=== PATIENT | female | born 1955 | race Caucasian/White ===

== ENCOUNTER 2017-07-27 13:20 | Emergency (ER) | payer OTHER ==
[2017-07-27] MEDS: KETOROLAC 60 MG INJ IM (13:53)
== END 2017-07-27 14:41 | disposition home or self-care (01) ==
LOC: FTE 13:20
DX: M25.561 Pain in right knee (principal); M25.562 Pain in left knee; I10 Essential (primary) hypertension; J45.909 Unspecified asthma, uncomplicated; Z85.3 Personal history of malignant neoplasm of breast
CPT/HCPCS: 73562; 73562-50; 96372; 99284-25